=== PATIENT | female | born 1995 | race Caucasian/White ===

== ENCOUNTER 2022-06-26 08:51 | Outpatient (CLI) | payer OTHER, SELFPAY ==
[2022-06-26 12:54] LABS: Cholesterol* 169 mg/dL (90-199); Glucose* 81 mg/dL (60-115); HDL Cholesterol* 71 mg/dL (>=50); LDL Cholesterol Calculated 87 mg/dL (<100); Triglycerides* 55 mg/dL (40-149)
== END 2022-06-26 08:52 | disposition home or self-care (01) ==
PROVIDERS: Visit Provider Physician Assistant
DX: Z01.419 Encounter for gynecological examination (general) (routine) without abnormal findings (principal); Z13.6 Encounter for screening for cardiovascular disorders; Z13.1 Encounter for screening for diabetes mellitus
CPT/HCPCS: 80061; 82947

== ENCOUNTER 2022-06-30 06:58 | Outpatient (CLI) | payer OTHER, SELFPAY ==
--- NOTE | 2022-06-30 07:15 | CRLHL7_ITS ---
For Patients: As a result of the Century Cures Act, medical imaging exams and procedure reports are released immediately into your electronic medical record. You may view this report before your referring provider. If you have questions, please contact your health care provider. CLINICAL HISTORY: Pelvic pressure TECHNIQUE: 2D flood scale and color Doppler images were acquired of the pelvis using a transvaginal approach. FINDINGS: On transvaginal imaging, the myometrium has a normal uniform echotexture. The endometrial lining appears normal and measures 9 mm in thickness. The left ovary measures 3.1 x 1.8 x 3.2 cm in size and the right ovary measures 3.0 x 1.4 x 1.8 cm. The ovaries demonstrate normal arterial and venous blood flow on color Doppler analysis. There are no suspicious fluid collections within the cul-de-sac. IMPRESSION: No abnormalities of the uterus or ovaries identified. Dictated by Chip Hawkins MD @ 06/30/2022 9:17:16 AM (Electronically Signed)
== END 2022-06-30 06:59 | disposition home or self-care (01) ==
PROVIDERS: Visit Provider Physician Assistant
DX: R10.2 Pelvic and perineal pain (principal)
CPT/HCPCS: 76830

== ENCOUNTER 2022-12-05 14:55 | Outpatient (CLI) | payer OTHER, SELFPAY | END 2022-12-05 14:56 | disposition home or self-care (01) | PROVIDERS: Visit Provider Registered Nurse | DX: Z34.91 Encounter for supervision of normal pregnancy, unspecified, first trimester (principal); Z3A.08 8 weeks gestation of pregnancy | CPT/HCPCS: 76817; 82565; 82570; 84156; 84450; 84460; 84520; 86592; 86703; 86762; 86787; 86803; 86850; 86900; 86901; 87086; 87340; 87491; 87591 ==

== ENCOUNTER 2023-02-18 08:34 | Outpatient (CLI) | payer OTHER, SELFPAY ==
--- NOTE | 2023-02-18 08:45 | CRLHL7_ITS ---
For Patients: As a result of the Century Cures Act, medical imaging exams and procedure reports are released immediately into your electronic medical record. You may view this report before your referring provider. If you have questions, please contact your health care provider. INDICATION: Evaluate anatomy. COMPARISON: 12/05/2022 TECHNIQUE: Real time flood scale imaging of the fetus was performed as well as color Doppler analysis of the umbilical vessels. FINDINGS: Sonographic imaging demonstrates a single living intrauterine gestation. Fetus demonstrates a regular cardiac rate of 123 beats per minute. Fetus has a variable position. The placenta lies posteriorly without evidence of placenta previa. The edge of the placenta is located 3.2 cm from the internal cervical os. Amniotic fluid volume appears normal. Single deepest vertical pocket: 4.8 cm. The cervix is closed and measures 4.4 cm in length. The composite ultrasound gestational age is calculated at 19 weeks 2 days with an estimated sonographic due date of 07/13/2023. The estimated weight is 284 grams which lies at the 18th %. The following biometric measurements were obtained: Biparietal diameter: 4.3 cm/19 weeks 0 days 18th% Head circumference: 16.1 cm/18 weeks 6 days 8th% Abdominal circumference: 14.3 cm/19 weeks 5 days 38th% Femur length: 2.9 cm/19 weeks 0 days 15th% The HC/AC ratio measures: 1.13 range (1.09-1.26) On anatomic survey, there is a normal appearance of the cerebral ventricles, cavum septi pellucidi, cisterna magna and cerebellum. The nose, lips, and facial profile appear normal. The cervical, thoracic and lumbar spine are well visualized and appear normal. There is a normal four-chamber heart view and the left and right ventricular outflow tracts appear normal. The diaphragm and stomach appear normal. The kidneys and bladder also appear normal. There is a normal three-vessel cord and cord insertion site. The four extremities appear normal. IMPRESSION: Normal OB ultrasound exam with concordance of clinical and sonographic dating. No intrinsic abnormalities noted on anatomic survey. Dictated by Chip Hawkins MD @ 02/18/2023 11:03:50 AM (Electronically Signed)
== END 2023-02-18 08:35 | disposition home or self-care (01) ==
LOC: US 08:34
PROVIDERS: Visit Provider Physician Assistant
DX: Z34.82 Encounter for supervision of other normal pregnancy, second trimester (principal); Z3A.19 19 weeks gestation of pregnancy
CPT/HCPCS: 76805

== ENCOUNTER 2023-04-17 14:16 | Outpatient (CLI) | payer OTHER, SELFPAY | END 2023-04-17 14:17 | disposition home or self-care (01) | LOC: NFLDREF 04-20 09:34 | PROVIDERS: Visit Provider Obstetrics & Gynecology | DX: Z34.93 Encounter for supervision of normal pregnancy, unspecified, third trimester (principal); Z3A.28 28 weeks gestation of pregnancy | CPT/HCPCS: 86592 ==

== ENCOUNTER 2023-04-22 07:49 | Outpatient (CLI) | payer OTHER, SELFPAY | END 2023-04-22 07:50 | disposition home or self-care (01) | LOC: NFLDREF 04-23 06:04 | PROVIDERS: Visit Provider Obstetrics & Gynecology | DX: Z34.80 Encounter for supervision of other normal pregnancy, unspecified trimester (principal) | CPT/HCPCS: 82951; 82952 ==

== ENCOUNTER 2023-05-27 09:31 | Outpatient (CLI) | payer OTHER, SELFPAY | END 2023-05-27 09:32 | disposition home or self-care (01) | PROVIDERS: Visit Provider Obstetrics & Gynecology | DX: O21.9 Vomiting of pregnancy, unspecified (principal); Z3A.33 33 weeks gestation of pregnancy | CPT/HCPCS: 80053 ==

== ENCOUNTER 2023-06-12 09:56 | Outpatient (CLI) | payer OTHER, SELFPAY ==
[2023-06-13 12:42] LABS: Strep B DNA Probe Negative (Negative); Strep B Susceptibility Needed? No
== END 2023-06-12 09:57 | disposition home or self-care (01) ==
LOC: NFLDREF 09:57
PROVIDERS: Visit Provider Obstetrics & Gynecology
DX: Z34.83 Encounter for supervision of other normal pregnancy, third trimester (principal); Z3A.36 36 weeks gestation of pregnancy
CPT/HCPCS: 87081; 87653

== ENCOUNTER 2023-06-26 17:00 | Inpatient (IN) | payer OTHER, SELFPAY ==
[2023-06-26] VITALS (18 sets, daily range): BP systolic 106–137; BP diastolic 59–84; PULSE 80–99; RESP 16–18; TEMP 36.4–37.1; O2SAT 97–100; BMI 35.5
--- NOTE | 2023-06-26 16:33 | P.OBLDTN_ITS ---
OB - Triage/Final Diagnosis Visit Information Narrative: Monique is a 27yo year old 2 para 1 at 38w1d gestation by LMP, who presents for rule out labor. course is complicated by prior delivery, umbilical cord cyst noted on early US (not redemonstrated on anatomy US) and elevated BMI. Patient was seen for routine OB visit this afternoon, where she noted regular contractions about every 10-15 minutes. Cervical exam was performed and noted to be 2/50/-2. She subsequently returned home, where she notes her contractions have become increasingly regular and painful. At present they are occurring [] minutes apart, rated as [] had a 10 in severity. Denies vaginal bleeding, leaking of fluids. Endorses active movement. She is otherwise feeling well and in her normal state of health. Monique is planning repeat delivery. Complete history and physical was documented by myself on 06/19/23. Physical exam: General: No acute distress Psych: Alert and oriented x3, full affect Heart: Regular rate and rhythm, no murmur rub or gallop Lungs: Clear to auscultation bilaterally Abdomen: Gravid. Otherwise soft and nontender. heart rate: Reactive NST. Baseline of 140 beats per minute, moderate variability, accelerations present, decelerations absent. [place]: [] Cervix: [] Presentation: Cephalic by cervical exam
--- OUTSIDE RECORDS SUMMARY | 2023-06-26 16:42 | XMS_ITS | Clinical Summary ---
Author Name Unknown Organization [facility] Address [address] [place] [address] Care Team Providers Care Dog Handler Name Role Phone Ellen Fung PA-C Primary Care Provider + Allergies Active Allergy Reactions Criticality Noted Date Comments Azithromycin Other (See Comments) 08/27/2015 has prolonged QT, try to avoid this medication Medications Medication Sig Dispensed Refills Start Date End Date Status magnesium oxide (MAG-OX) 400 (241.3 MG) MG tabletIndications:Epis odic tension-type headache, not intractable Take 1 tablet (400 mg) by mouth daily 60 tablet 11 05/25/2017 Active melatonin 3 MG tablet Take 3 mg by mouth Takes couple times per week 0 05/14/2010 Active Active Problems Problem Noted Date Diagnosed Date Low ferritin 05/25/2017 Surveillance of previously prescribed contracept grey pill 10/23/2016 Menstrual headache Immunizations Name Administration Dates Next Due DTAP (<7y) 10/04/1998 DTP-Hib 01/01/1995, 4,02/18/1994,1993 Flu, Unspecified 05/15/2015 HEPA 07/28/2011,01/08/2011 HEPATITIS A (PEDS 12M-18Y) 07/28/2011,01/08/2011 HIB (PRP-T) 01/01/1995, 4,02/18/1994,1993 HPV 08/03/2009,03/30/2009,01/23/2009 HPV Quadrivalent 08/03/2009,03/30/2009, 9 HepB 10/09/1994,01/01/1994,1993 Hepatitis B, Peds 10/09/1994,01/01/1994,11/22/18 94 Historical DTP/aP 10/04/1998, 5,04/09/1994,1993,1993 Influenza Vaccine >6 months,quad, PF 05/25/2017 MMR 01/29/2006,01/01/1995 Meningococcal ACWY (Menactra??) 01/23/2009 Meningococcal ACWY (Menveo??) 08/27/2015 Poliovirus, inactivated (IPV) 05/11/2013 ,10/04/1998,04/09/1994,1993,1993 TDAP Vaccine (Adacel) 10/25/2015,01/29/2006 Typhoid IM 05/11/2013 Varicella 01/10/1997 Family History Medical History Relation Comments Lung Cancer Paternal Grandmother 2nd hand sm tito Relation Status Comments Father Alive Maternal Grandfather Alive Maternal Grandmother Alive Mother Alive Paternal Grandfather Alive Paternal Grandmother Sister Alive Social History Tobacco Use Types Packs/Day Years Used Date Smoking Tobacco: Never Smokeless Tobacco: Never Alcohol Use Standard Drinks/Week Comments Yes 0 (1 standard drink = 0.6 oz pur e alcohol) 0-1 drinks per month PHQ-2 Answer Date Recorded PHQ-2 Score 0 06/23/2018 Adolescent Education Answer Date Record ed Getting School Help Needed Not on file 03/06 Sex and Gender Information Value Date Recorded Sex Assigned at Not on file Gender Identity Not on file Sexual Orientation Not on file Last Filed Vital Signs Vital Sign Reading Time Taken Comments Blood Pressure 128/68 05/24/2018 4:31 PM REFRACTORY FURNACE DESIGNER Pulse 96 05/24/2018 4:31 PM REFRACTORY FURNACE DESIGNER Temperature 37 ??C (98.6 ??F) 05/24/2018 4:31 PM REFRACTORY FURNACE DESIGNER Respiratory Rate - - Oxygen Saturation 97% 05/24/2018 4:31 PM REFRACTORY FURNACE DESIGNER Inhaled Oxygen Concentration - - Weight 82.1 kg (181 lb) 05/24/2018 4:31 PM REFRACTORY FURNACE DESIGNER Height 167.6 cm (5' 6) 05/24/2018 4:31 PM REFRACTORY FURNACE DESIGNER Body Mass Index 29.21 05/24/2018 4:31 PM REFRACTORY FURNACE DESIGNER Plan of Treatment Health Maintenance Due Date Last Done Comments ADVANCE CARE PLANNING 1993 ANNUAL REVIEW OF HM ORDERS 1993 COVID-19 Vaccine (#1) 04/09/1994 HIV SCREENING 2008 HEPATITIS C SCREENING 10/09/2011 YEARLY PREVENTIVE VISIT 10/23/2017 10/23/2016 PAP 10/30/2018 10/31/2015, 09/14/2015 PHQ-2 (once per calendar year) 2022 10/23/2016 INFLUENZA VACCINE (#1) 2023 05/25/2017, 2014 DTAP/TDAP/TD IMMUNIZATION (8 - Td or Tdap) 10/24/2025 10/25/2015, 01/29/2006, 10/04/1998, Additional history exists HEPATITIS B IMMUNIZATION Completed 995, 10/09/1994, 01/01/1994, Additional history exists HPV IMMUNIZATION Completed 08/03/2009, , 03/30/2009, Additional history exists IPV IMMUNIZATION Completed 05/11/2013, , 04/09/1994, Additional history exists MENINGITIS IMMUNIZATION Aged Out 08/27/2015, 01/23 No longer eligible based on patient's age to complete this topic Pneumococcal Vaccine: Pediatrics (0 to 5 Years) and At-Risk Patients (6 to 64 Years) Aged Out No longer eligible based on patient's age to complete this topic RSV MONOCLONAL ANTIBODY Aged Out No l onger eligible based on patient's age to complete this topic Care Teams Dog Handler Relationship Specialty Start Date End Date Ellen Fung PA-C [address] [place] [id number] PCP - General Physician Soda Tester 05/25/17
--- OUTSIDE RECORDS SUMMARY | 2023-06-26 16:42 | XMS_ITS | Referral Summary ---
Author Name Unknown Organization [facility] Address [address] [place] [address] Care Team Providers Care Hog Cutter Name Role Phone Ellen Fung PA-C Primary [...] (Adacel) 10/25/2015,01/29/2006 Typhoid IM 05/11/2013 Varicella 01/10/1997 Social History Tobacco Use Types Packs/Day Years [...] Comments Blood Pressure 128/68 05/24/2018 4:31 PM WATCH CASE POLISHER Pulse 96 05/24/2018 4:31 PM WATCH CASE POLISHER Temperature 37 ??C (98.6 ??F) 05/24/2018 4:31 PM WATCH CASE POLISHER Respiratory Rate - - Oxygen Saturation 97% 05/24/2018 4:31 PM WATCH CASE POLISHER Inhaled Oxygen Concentration - - Weight 82.1 kg (181 lb) 05/24/2018 4:31 PM WATCH CASE POLISHER Height 167.6 cm (5' 6) 05/24/2018 4:31 PM WATCH CASE POLISHER Body Mass Index 29.21 05/24/2018 4:31 PM WATCH CASE POLISHER Plan of Treatment Not on file Care Teams Hog Cutter Relationship Specialty Start Date End Date Ellen Fung PA-C [address] [place] [id number] PCP - General Physician Cleaner And Dyer 05/25/17
--- OUTSIDE RECORDS SUMMARY | 2023-06-26 16:42 | XMS_ITS | Encounter Summary ---
Author Name Unknown Organization [facility] Address [address] [place] [id number] Care Team Providers Care Credentialer Name Role Phone Clinic - [facility] Primary Care Provider Ellen Fung PA-C Primary Care Provider + Ellen Fung PA-C Unavailable Zulay Meade PA-C Unavailable [phone] Zulay Meade PA-C Unavailable [phone] Ellen Fung PA-C Unavailable Zulay Meade PA-C Unavailable [phone] Reason for Visit * Reason Onset Date Comments Refill Request 01/16/2017 drospirenone-eth inyl estradiol (OCELLA) 3-0.03 MG per tablet Encounter Details Date Type Department Care Team (Late st Contact Info) Description 01/16/[address] [facility] [address] [place] [address] [phone] Ellen Fung PA-C [address] [place] [address] [phone] Refill Request (drospirenone-ethinyl estra... Social History Tobacco Use Types Packs/Day Years Used Date Smoking Tobacco: Never Alcohol Use Standard Drinks/Week Comments Yes 0 (1 standard drink = 0.6 oz pur e alcohol) very seldom, 1 monthly? Sex and Gender Information Value Date Recorded Sex Assigned at Not on file Gender Identity Not on file Sexual Orientation Not on file documented as of this encounter Miscellaneous Notes * Telephone Encounter - Taisha Polk RN - 01/19/2017 4:04 PM CDT Pt should have refills left. Steph Polk RN * Telephone Encounter - Alina Fernandes - 01/16/2017 10:48 AM CDT drospirenone-ethinyl estradiol (OCELLA) 3-0.03 MG per tablet This refill has been requested too soon. Please decline and close. * Telephone Encounter - Taisha Polk RN - 01/16/2017 7:36 AM CDTMessage [facility] Original authorizing provider: Ellen Fung PA-C Monique Jeffries would like a refill of the following medications: drospirenone-ethinyl estradiol (OCELLA) 3-0.03 MG per tablet [Ellen Fung PA-C] Preferred pharmacy: [facility] [address] Comment: documented in this encounter Plan of Treatment Not on file documented as of this encounter Visit Diagnoses Diagnosis Surveillance of previously prescribed contraceptive pill documented in this encounter Care Teams Credentialer Relationship Specialty Start Date End Date Clinic - [address] [address] PCP - General 10/23/16 05/24/17 Ellen Fung PA-C [address] [place] [id number] PCP - General Physician Coal Sample Tester 05/25/17 Ellen Fung PA-C [address] [place] [id number] PCP - Assigned PCP 09/26/16 05/29/18 Zulay Meade PA-C [address] [place] [address] [place] [address] PCP - Assigned PCP 05/30/18 08/17/18 Zulay Meade PA-C [address] [place] [address] [place] [address] Assigned PCP 05/30/18 05/28/19 Ellen Fung PA-C [address] [place] [address] Assigned PCP 05/29/19 05/26/20 Zulay Meade PA-C [address] [place] [address] Assigned PCP 05/27/20 05/25/21 documented as of this encounter
--- OUTSIDE RECORDS SUMMARY | 2023-06-26 16:42 | XMS_ITS | Clinical Summary ---
Author Name Unknown Organization [facility] Address [place], [place] [address] Care Team Providers Care Lay Out Inspector Name Role Phone Shannan Crabtree NP Primary Care Provider [phone] Allergies Active Allergy Reactions Criticality Noted Date Comments Azithromycin Other - Describe In Comment Field 08/27/2015 has prolonged QT, try to avoid this medication Medications Medication Sig Dispensed Refills Start Date End Date Status melatonin 3 mg Take 1 tablet by mouth at bedtime. 0 05/14/2010 Active OCELLA 3-0.03 mg tabletIndications:Encou nter for initial prescription of contraceptive pills TAKE 1 TABLET BY MOUTH ONCE DAILY 84 tablet 0 11/04/2016 Active Active Problems Problem Noted Date Diagnosed Date Prolonged Q-T interval on ECG 10/25/2015 Overview: history of when on Nortriptyline Sleep difficulties 10/06/2014 Irregular menses 07/04/2013 Resolved Problems Problem Noted Date Diagnosed Date Resolved Date Generalized headaches 01/23/20092014 Varicella 10/06/2014 Immunizations Name Administration Dates Next Due DTP-HIB 01/01/1995,04/09/1994,02/18/1994 ,1993 DTaP 10/04/1998 Hepatitis A (Peds) 07/28/2011,01/08/2011 Hepatitis B (Peds) 10/09/1994,01/01/1994, 994 Human Papilloma Virus Vaccine 08/03/2009, 009,01/23/2009 Inactivated Polio Vaccine 05/11/2013,,04/09/1994,02/18/1994 ,1993 Influenza Virus, Unspecified 05/15/2015 MMR 01/29/2006,01/01/1995 Meningococcal Vaccine (Menactra) 01/23/2009 Meningococcal Vaccine (Menveo) 08/27/2015 Tdap 10/25/2015,01/29/2006 Typhoid (injectable) 05/11/2013 Varicella Vaccine 01/10/1997 Family History Medical History Relation Name Comments Cancer Paternal Grandfather kidney Cancer Paternal Grandmother lung Diabetes Paternal Grandmother Relation Name Status Comments Father Alive Mother Alive Paternal Grandfather Paternal Grandmother Sister Alive Social History Tobacco Use Types Packs/Day Years Used Date Smoking Tobacco: Never Smokeless Tobacco: Never Alcohol Use Standard Drinks/Week Comments Yes 0 (1 standard drink = 0.6 oz pur e alcohol) once in a while Sex and Gender Information Value Date Recorded Sex Assigned at Not on file Gender Identity Not on file Sexual Orientation Not on file Obstetrics History Last Filed Vital Signs Vital Sign Reading Time Taken Comments Blood Pressure 116/62 10/25/2015 8:02 AM CDT Pulse 90 10/25/2015 8:02 AM CDT Temperature 36.4 ??C (97.5 ??F) 06/12/2012 9:12 AM CS T Respiratory Rate 12 10/06/2014 3:04 PM CDT Oxygen Saturation - - Inhaled Oxygen Concentration - - Weight 86.6 kg (191 lb) 10/25/2015 8:02 AM CDT Height 166.4 cm (5' 5.5) 08/27/2015 8:58 AM CDT Body Mass Index 31.3 08/27/2015 8:58 AM CDT Plan of Treatment Health Maintenance Due Date Last Done Comments COVID-19 vaccine series (#1) 04/09/1994 HIV for age 15-65 2008 Hepatitis C screening for age 18-79 10/09/2011 BMI (ht and wt on same day) for age 18+ 08/26/2016 08/27/2015 Depression screening for age 12+ 10/24/2016 10/25/2015 Influenza for age 9-49 02/13/2023 05/15/2015 Pap test for age 21-65 06/26/2025 3, 06/26/2022, 03/13/2020, Additional history exists Tetanus booster 10/24/2025 10/25/2015, 01/29/2006 Tdap Completed 10/25/2015, 01/29/2006 Pneumococcal series for age 6-64 Aged Out No longer eligible based on patient's age to complete this topic Care Teams Lay Out Inspector Relationship Specialty Start Date End Date Shannan Crabtree NP [address] [place] [address] [place] [address] PCP - General 01/15/06
--- NOTE | 2023-06-26 17:03 | P.OBHP_ITS ---
OB - H&P: HPI History of Present Illness Chief complaint: OB : 2 Para: 1 Narrative: Monique is a 27yo year old 2 para 1 at 38w1d gestation by LMP, who presents for rule out labor. course is complicated by prior delivery, umbilical cord cyst noted on early US (not redemonstrated on anatomy US), elevated BMI and history of preeclampsia. Patient was seen for routine OB visit this afternoon, where she noted regular contractions about every 10 minutes. Cervical exam was performed and noted to be 2/50/-2. She subsequently returned home, where she notes her contractions have become increasingly regular and painful. At present they are occurring 3-5 minutes apart, rated as 3 had a 10 in severity. Denies vaginal bleeding, leaking of fluids. Endorses active movement. She is otherwise feeling well and in her normal state of health. Monique is planning repeat delivery. Complete history and physical was documented by myself on 06/19/23. Specific Issues/Plans G 2 P 1001 : Rashad 1. History of preeclampsia with first . * Baseline pre E labs: BUN, creatinine, AST, ALT, and PC ratio all normal. * Recommend daily baby aspirin starting at 12 weeks to reduce risk of pre E. 2. H/o d/t not progressing in second stage of labor. * Planning repeat 3. Umbilical cord cyst on first ultrasound. * MaterniT 21:normal, XX * Umbilical cord cyst resolved at time of anatomy scan 02/18/2023. Covid: Not vaccinated. Recommended. Reviewed risks of covid infection in . Flu: 03/20/23 RSV: 06/03 [facility] Medical History (Updated 06/26/23 @ 17:10 by Sadie Mariano MD) Strep throat ?J02.0 - Streptococcal pharyngitis (ICD-10) Preeclampsia ?O14.90 - Unspecified pre-eclampsia, unspecified trimester (ICD-10) Anemia ?D64.9 - Anemia, unspecified (ICD-10) Surgical History (Updated 06/26/22 @ 14:08 by Marilu Christensen PA-C) History of ?Z98.891 - History of uterine scar from previous surgery (ICD-10) Family History (Updated 06/26/22 @ 14:10 by Marilu Christensen PA-C) Mother Breast cancer Paternal Grandmother Lung cancer Depression Paternal Grandfather Cancer of kidney Sister Celiac disease Social History (Updated 06/26/22 @ 14:11 by Marilu Christensen PA-C) Narrative: Controller, . Nonsmoker. Alcohol use: 1-2 drinks per week. No recreational drug use. No concerns with safety or abuse. Smoking Status: Never smoker Little interest or pleasure in doing things: not at all Feeling down, depressed, or hopeless: not at all Meds Home Medications and Allergies Home Medications Medication Instructions Recorded Confirmed Type prenat.vits,davida,dhe-[id number] 1 tab PO QDAY 06/26/22 06/19/23 History aspirin 81 mg tablet,delayed 81 mg PO QDAY 01/22/23 06/19/23 History release (Adult Aspirin Regimen) ferrous sulfate 325 mg (65 mg 325 mg PO Q OTHER DAY 04/29/23 06/19/23 History iron) tablet,delayed release Allergies Allergy/AdvReac Type Severity Reaction Status Date / Time No Known Drug Allergies Allergy Verified 06/26/23 12:55 OB - H&P: Exam Physical Exam: Vital signs: Pulse BP 93 128/78 06/26/23 16:50 06/26/23 16:50 Narrative: Physical exam: General: No acute distress Psych: Alert and oriented x3, full affect Heart: Regular rate and rhythm, no murmur rub or gallop Lungs: Clear to auscultation bilaterally Abdomen: Gravid. Otherwise soft and nontender. EFW by Dieudonne's 3400g. heart rate: Reactive NST. Baseline of 140 beats per minute, moderate variability, accelerations present, decelerations absent. [place]: Contractions q1-4m Cervix: 3.5cm/70%/-1 Presentation: Cephalic by cervical exam Assessment and Plan Assessment and plan (1) Spontaneous onset of labor: Status: Acute (2) with history of section, antepartum: Status: Acute (3) Umbilical cord cyst during , antepartum: Status: Resolved Plan Monique is a 27yo year old 2 para 1 at 38w1d gestation by LMP, who presents for rule out labor. course is complicated by prior delivery, umbilical cord cyst noted on early US (not redemonstrated on anatomy US), elevated BMI and history of preeclampsia. She presents to triage for spontaneous onset of labor at term. She has demonstrated cervical change from 2/50/-2 to 3.5/70/-1 with regular contractions q1-4m on toco. She desires repeat delivery, not interested in surgical sterilization or IUD placement. - Plan to proceed with repeat delivery. OR team notified to present for delivery. - Plan perioperative Ancef and azithromycin - Significant lower extremity edema noted, plan to obtain baseline preeclampsia labs and type/screen - Blood type A positive, GBS negative
[2023-06-26] MEDS: LACTATED RINGERS 1000 ML 1,000 ML IV (17:15)
[2023-06-26 17:31] LABS: Basophils Percent Auto 0.1 % (0.0-3.0); Hematocrit 36.2 % (33.0-51.0); Hemoglobin* 12.1 gm/dL (12.0-16.0); Immature Granulocytes Pct Auto 0.5 %; Lymphocytes Percent Auto 13.9 % (20-44); Mean Corpuscular HGB Conc 33 gm/dL (32-36); Mean Corpuscular Hemoglobin 31 pg (26-34); Mean Corpuscular Volume 93 fL (80-100); Monocytes Percent Auto 4.9 % (0.0-11.0); Neutrophils Percent Auto 79.6 % (42.0-72.0); Platelet Count* 203 K/uL (140-440); RDW Coefficient of Variation % 12.8 % (11.5-15.5); Red Blood Count 3.89 m/uL (4.00-5.20); White Blood Count* 12.41 K/uL (4.50-11.00)
[2023-06-26 17:32] LABS: Alanine Aminotransferase* 18 U/L (4-35); Aspartate Amino Transferase* 24 U/L (12-35); Blood Urea Nitrogen* 4 mg/dL (5-24); Creatinine* 0.4 mg/dL (0.5-1.5); Est. Creatinine Clearance* 194.27; Estimated Glomerular Filt Rate 137 ml/min
[2023-06-26 17:39] LABS: Slide Review Reflex No
[2023-06-26] MEDS: AZITHROMYCIN 500 MG in 0.9 % SODIUM CHLORIDE 250 ml 250 ML 255 MG IVPB (18:15)
[2023-06-26] MEDS: CEFAZOLIN 2 GM INJ IVP (18:15)
--- NOTE | 2023-06-26 19:23 | P.OBPRC_ITS ---
Procedure Time Seen by Provider: 19:25 Date of procedure: 06/26/23 Pre-op diagnosis: Spontaneous onset of labor Prior Post-op diagnosis: same Procedure Done: Global Will [facility] bill your pro fee for this procedure?: Yes Blood Loss Measurement Type: QBL (8953) Bakri Used: No IV fluids (mL): 2,500 Urine Output (mL): 1,000 Surgeon: Asha Mariano MD Anesthesia Type: Spinal Findings: Moderate adhesions of the subcutaneous tissues, rectus fascia and muscle Normal uterus, bilateral fallopian tubes and ovaries Procedure Name: Repeat Delivery Procedure Description: Patient was taken to the operating room with IV running. She received cefazolin and azithromycin in preoperative prophylaxis. Spinal anesthesia was administered. Borden catheter was inserted. She was prepped and draped in the usual sterile fashion. Anesthesia was tested and found to be adequate. A low-transverse skin incision was made with a scalpel overlying prior incision and carried through to the underlying layer of fascia with the scalpel. The subcutaneous fat was dissected off the underlying fascia with Bovie. The fascia was nicked in the midline with a scalpel, and this incision was extended laterally with scissors. Moderate adhesions between subcutaneous tissue, rectus fascia and muscles were noted. The rectus muscles were in the midline. Peritoneum was identified and entered bluntly. Gentle traction and bovie was used to widen this opening laterally. Vineet O retractor was inserted and tightened down, providing excellent visualization of the lower uterine segment. The bladder reflection was advanced along the lower uterine segment. A bladder flap was created with a combination of sharp and blunt dissection. Low-transverse uterine incision was made with a scalpel. Incision was widened bluntly. The 's head was grasped through the hysterotomy and delivered with the help of fundal pressure. The remainder of the body delivered without incident. Cord was clamped and cut after 30 seconds. was handed off to attending nurses. The placenta was delivered with gentle traction on the cord. The uterus was cleaned of all clots and debris with the dry lap pad. The hysterotomy was inspected, no extensions noted. Hysterotomy incision was reapproximated with 0 Vicryl in a running, locked fashion. Second layer of the same suture was used in imbricating fashion to obtain hemostasis. A single [id number] was applied at the mid-right hysterotomy for additional hemostasis. The adnexa were examined and noted to be normal in appearance. The cul-de-sac and gutters were cleansed with dampened laparotomy sponge, removing any further clots and debris. The Vineet O retractor was removed. The hysterotomy was reexamined and found to be hemostatic. The rectus muscles were examined and hemostasis was achieved with additional electrocautery. Due to prior adhesive disease, there were areas of disruption of the muscle with small oozing noted, where Jas was applied atop the rectus abdominis muscles. The fascia was reapproximated with 0 Vicryl in a running fashion. Subcutaneous fat was irrigated and Bovie used on oozing vessels. The subcutaneous fat was noted to be less than 2cm, closer was not required. The skin was closed with a subcuticular stitch of 3-0 Vicryl. Surgical glue was applied above this. Surgical dressing was applied. Patient tolerated procedure well was taken to recovery area in stable condition. sex: Female Weight: 1357g APGARs: 8 and 8 at 1 and 5 minutes respectively Complications: hemorrhage by QBL of 1,357mL. Question of concurrent amniotic fluid that may have falsely elevated her QBL. Clinically, her bleeding was slightly above average - mostly secondary to oozing from site of adhesion take down. No uterine atony noted. Pathology: specimen obtained, sent to pathology Surgery Debrief Performed: Yes Condition: stable Disposition: floor
--- NOTE | 2023-06-26 20:10 | P.NB_ITS ---
Nerve Block Nerve Block Time Seen by Provider: 19:25 Date Seen: 06/26/23 Type of block requested by surgeon for post-operative analgesia: TAP Side: bilateral Time out performed: Yes Verification of patient name: Yes Verification of date of : Yes Site marking: site marked Name of person performing procedure: Kirill Camryn Continuous monitoring Was continuous monitoring of O2 sat, B/P, monitoring coordinator, recorded every 15 minutes?: Yes Procedure Checklist: sterile prep, needles and gloves Ultrasound guided. Images saved: Yes Medications given in 5ml increments after negative aspiration: Marcaine %: 0.25 mL: 30 Needle gauge: 21 and Exparel mL: 10 Needle gauge: 21 Patient tolerated procedure well: Yes Additional comments: Injected in 5mL increments after negative aspiration Block Charges Block Charge (with Pro Fee): TAP Bilateral Use of Ultrasound Machine for Block: Yes- US Guidance/pain block
--- NOTE | 2023-06-26 20:12 | W.ANESCHARGE ---
Anesthesia Charges Start Date/Time Anesthesia Start Date: 06/26/23 Anesthesia Start Time: 18:04 Stop Date/Time Anesthesia Stop Date: 06/26/23 Anesthesia Stop Time: 19:41 Summary Emergency: [employer]GER
[2023-06-27] VITALS (24 sets, daily range): BP systolic 106–118; BP diastolic 72–78; PULSE 86–97; RESP 14–18; TEMP 36.8–37.1; O2SAT 97–100
[2023-06-27] MEDS: KETOROLAC 30 MG/ML inj IVP ×4 (01:09→19:20)
[2023-06-27] MEDS: SODIUM CHLORIDE 0.9 % (FLUSH) 10 ML SYRINGE IVF ×4 (01:09→19:20)
[2023-06-27] MEDS: ONDANSETRON 2 MG/ML inj 4 MG IV (01:27)
[2023-06-27] MEDS: ACETAMINOPHEN 500 MG TABLET 1000 MG PO (04:30)
[2023-06-27 06:56] LABS: Hemoglobin* 10.5 gm/dL (12.0-16.0)
--- NOTE | 2023-06-27 11:18 | PM.ANPOST ---
Post Anesthesia Note Post Anesthesia Note Patient seen: Inpatient Respiratory Status: adequate Cardiovascular Status: adequate Mental Status: baseline Pain: adequate Temp: baseline Anesthetic awareness: N/A Complications: none Follow care: none
--- NOTE | 2023-06-27 12:04 | P.OBPN_ITS ---
OB - PN:Subj Subjective Time Seen by Provider: 12:04 Date Seen: 06/27/23 Interval history: Monique is a 27 y.o. who was admitted to L & D for labor, desired a repeat c- section.? She had an uncomplicated repeat .? ? ? Narrative: The patient feels well.? The pain is well controlled with current medications.? She has no new complaints.? She is breast feeding and reports things are going well.? the patient has done well.? Vitals have been stable.? She has remained afebrile.? Has a good appetite, is tolerating a general diet.? She has not been able to void since her whelan was removed. She was straight cathed by the RN. Will continue to monitor.? She is passing gas and has not had a bowel movement.? She is ambulating and denies any dizziness.? Has Small amount of rubra lochia.? OB - PN: Obj Exam Physical Exam: Vital signs: Temp Pulse Resp BP Pulse Ox O2 Del Method 98.4 F 86 16 106/72 97 Room Air 06/27/23 08:01 06/27/23 08:01 06/27/23 09:20 06/27/23 08:01 06/27/23 08:01 06/27/23 08:01 Narrative: VSS.? Afebrile? GENERAL APPEARANCE:? normal affect, alert, no distress? MOOD:? appropriate? HEENT: normocephalic, neck supple, full ROM? CHEST:? Symmetrical chest wall movement.? Normal respiratory effort.? Clear to auscultation? HEART:? regular rate and rhythm? ABDOMEN:? soft, non-tender. Uterine fundus is firm, 1 below Umbilicus, Midline and is appropriate for the stage of recovery.? Bowel sounds present.? EXTREMITIES:? normal and trace edema? SKIN: warm, dry.? Dressing on, clean/dry/intact.? No signs of infection noted.? Urinary Catheter Management: whelan: Cath placed during this visit: yes, but has since been removed by the nurse Reason for continuing: decision to DC catheter Insertion date: 06/26/23 Insertion time: 18:10 Removal date: 06/27/23 Removal time: 01:25 OB - PN: Obj Data Labs Labs: Laboratory Results - last 24 hr 0106/26/23 06/27/23 17:09 17:09 06:33 WBC 12.41 H RBC 3.89 L Hgb Cancelled 12.1 10.5 L Hct 36.2 MCV 93 MCH 31 MCHC 33 RDW Coeff of Matias 12.8 Plt Count 203 Neut % (Auto) 79.6 H Lymph % (Auto) 13.9 L [place] % (Auto) 4.9 Eos % (Auto) 1.0 Baso % (Auto) 0.1 Neut # (Auto) 9.90 H Lymph # (Auto) 1.70 [place] # (Auto) 0.60 Eos # (Auto) 0.10 Baso # (Auto) 0.00 Abs Immat Gran (auto) 0.10 Imm/Tot Granulo (auto) 0.5 BUN 4 L Creatinine 0.4 L Estimated Creat Clear 194.27 Estimated GFR 137 AST 24 ALT 18 Blood Type A Positive Antibody Screen NEGATIVE OB - PN: A/P Delivery Assessment and Plan (1) Status post repeat low transverse section: Status: Acute (2) Lactating mother: Status: Acute (3) with history of section, antepartum: Status: Acute (4) exam: Status: Acute Plan day: 1 Plan: routine care Comments: Assessment/Plan? G 2 P 2 status post uncomplicated repeat .? ?? 1.? Continue route PP cares? 2.? .? May see if desired? 3.? Anticipate discharge home tomorrow or the following day per pt preference? 4. Unable to void. Straight cathed by RN. Will continue to monitor. ?
[2023-06-27] MEDS: DOCUSATE SODIUM 100 MG CAPSULE PO (20:02)
[2023-06-28 00:58] VITALS: BP 125/85; PULSE 92; RESP 18; TEMP 36.8; O2SAT 98
[2023-06-28] MEDS: KETOROLAC 30 MG/ML inj IVP (01:00)
[2023-06-28] MEDS: ACETAMINOPHEN 500 MG TABLET 1000 MG PO ×2 (05:27→14:51)
--- NOTE | 2023-06-28 08:39 | PM.OBDSVD1 ---
DS: Providers Provider Time Seen by Provider: 08:39 Date Seen: 06/28/23 Date of admission: 06/26/23 17:00 Primary care physician: Not a Local Provider Admitting Clinician: Sadie Mariano MD Attending Physician on discharge: Sadie Mariano MD Date of Discharge: 06/28/23 DS: Diagnosis Discharge Diagnosis (1) Status post repeat low transverse section: Status: Acute (2) Lactating mother: Status: Acute (3) exam: Status: Acute Exam Narrative: Exam Narrative: VSS. ?Afebrile GENERAL APPEARANCE: ?normal affect, alert, no distress MOOD: ?appropriate HEENT: normocephalic, neck supple, full ROM CHEST: ?Symmetrical chest wall movement. ?Normal respiratory effort. ?Clear to auscultation HEART: ?regular rate and rhythm ABDOMEN: ?soft, non-tender. Uterine fundus is firm, 1 below Umbilicus, Midline and is appropriate for the stage of recovery. ?Bowel sounds present. EXTREMITIES: ?normal and trace edema SKIN: warm, dry. ? ?Incision clean/dry/well approximated. ?No signs of infection noted. Const: Vital Signs, click to edit/add: Vital Signs - 24 hr 06/27/23 09:20 06/27/23 10:09 06/27/23 11:09 Temperature Pulse Rate [Pulse Oximeter] Respiratory Rate 16 16 16 Blood Pressure [Le ft Arm] Pulse Oximetry Oxygen Delivery Or thod 06/27/23 12:09 06/27/23 13:09 06/27/23 13:17 Temperature 98.4 F Pulse Rate [Pulse Oximeter] 94 Respiratory Rate 16 16 16 Blood Pressure [Le ft Arm] 117/78 Pulse Oximetry 100 Oxygen Delivery Or thod Room Air 06/27/23 14:09 06/27/23 15:09 06/27/23 16:04 Temperature 98.3 F Pulse Rate [Pulse Oximeter] 97 Respiratory Rate 16 16 16 Blood Pressure [Le ft Arm] 115/74 Pulse Oximetry 99 Oxygen Delivery Or thod Room Air 06/27/23 16:09 06/27/23 17:09 06/27/23 18:09 Temperature Pulse Rate [Pulse Oximeter] Respiratory Rate 16 16 16 Blood Pressure [Le ft Arm] [facility]ulse [facility]ximetry [facility]23 19:19 06/28/23 00:58 Temperature 98.3 F Pulse Rate [Pulse Oximeter] 92 Respiratory Rate 18 18 Blood Pressure [Le ft Arm] 125/85 Pulse Oximetry 98 Oxygen Delivery Me thod Room Air OB - DS: Summary Hospital Course Hospital Course: Monique is a 27 y.o. G 2 P 2 who was admitted to L & D for chelsea labor, hx previous desiring repeat. ?She had an uncomplicated . ? The patient feels well. ?The pain is well controlled with current medications. ?She has no new complaints. ?She is breast feeding and reports things are going well.? the patient has done well.? Vitals have been stable.? She has remained afebrile.? Has a good appetite, is tolerating a general diet. ?She is voiding without difficulty.? She is passing gas and has not had a bowel movement.? She is ambulating and denies any dizziness.? Has Small amount of rubra lochia. She is planning condoms for prevention. Problems: none plan: Discharge home with baby. Follow up in 2 weeks and 6 weeks. , may follow up with if needed Previous hx of preeclampsia, is aware of signs when to call/be seen. No preeclampsia noted this at this time. Peripartum Data delivery method: Repeat Section Procedures: Procedures Operation Date: 06/26/23 17:45 <No data on this case meets the specified criteria> Operation Date: 06/26/23 18:15 Actual Procedure Side Surgeon p Section Sadie Mariano MD complications: none Gender: Female Infant Discharge Plan: Home Status at Discharge Functional status at discharge: independent ambulation Overall status at discharge: patient is progressing back to baseline Time Spent with Patient Time attestation: Total time spent providing and/or coordinating discharge services: Time spent: Less than 30 minutes Discharge Plan Discharge Disposition: Home, Self-Care Date of Admission: 06/26/23 17:00 Primary Care Provider: Provider,Not a Local Condition: Stable Anticipated Discharge Date/Time: 06/28/23 13:00 Discharge Medications: New docusate sodium 100 mg Capsule 100 mg PO BID PRNQty: 100 0RF Rx Instructions: Take 1 cap 1-2 times a day as needed for constipation ibuprofen 600 mg Tablet 600 mg PO Q6H PRN (Reason: Pain) Qty: 60 0RF oxycodone 5 mg Tablet 5 - 10 mg PO Q4H PRN (Reason: Pain) Qty: 20 0RF Continued prenat.vits,davida,ybc-[id number] Tablet 1 tab PO QDAY Discontinued aspirin [Adult Aspirin Regimen] 81 mg tablet,delayed release (DR/EC) 81 mg PO QDAY ferrous sulfate 325 mg (65 mg iron) tablet,delayed release (DR/EC) 325 mg PO Q OTHER DAY Discharge Orders: Discharge Order (Routine); Ordered 06/28/23 Ordered By: Kisha Zamora Patient Education: OB Over the Counter Medication Information, OB /Breast Feeding Additional Instructions: Follow up in 2 weeks and 6 weeks in the clinic. No driving while taking oxycodone. Must be able to comfortably slam on the breaks in an emergency and twist to see as needed. Activity Level: Activity as Tolerated Discharge Diet: Regular Follow Up Appointments: Provider,Not a Local [Primary Care Provider] - [facility]
[2023-06-28 08:49] VITALS: BP 114/76; PULSE 93; RESP 18; TEMP 36.7; O2SAT 93
[2023-06-28] MEDS: IBUPROFEN 600 MG TABLET PO (08:54)
[2023-06-28] MEDS: DOCUSATE SODIUM 100 MG CAPSULE PO (08:54)
== END 2023-06-28 16:14 | disposition home or self-care (01) | DRG 788 ==
LOC: OB OUT 17:02 → OB 17:02
PROVIDERS: Admitting Provider Obstetrics & Gynecology; Visit Provider Obstetrics & Gynecology
PROC: 10D00Z1 Extraction of Products of Conception, Low, Open Approach (ICD-10-PCS; CPT 59514; principal; 2023-06-26 18:00)
DX: O34.211 Maternal care for low transverse scar from previous cesarean delivery (principal); N85.8 Other specified noninflammatory disorders of uterus; Z3A.38 38 weeks gestation of pregnancy; Z37.0 Single live birth; G89.18 Other acute postprocedural pain; Z87.59 Personal history of other complications of pregnancy, childbirth and the puerperium
CPT/HCPCS: 01961; 36415; 51798; 64488; 76942; 82565; 84450; 84460; 84520; 85018; 85025; 86850; 86900; 86901; 88307; 99140; A9270; C9290; J0456; J0665; J0690; J1100; J1885; J2274; J2371; J2405; J2590; J7050; J7120

== ENCOUNTER 2023-09-04 09:23 | Outpatient (CLI) | payer OTHER, SELFPAY ==
--- NOTE | 2023-09-04 17:00 | P.LACCB_ITS ---
Consult Note - Mom Date of Visit Date of visit: 09/04/23 security and privacy consultant: Judith Verdin Visit Code: Visit Patient's Information Phone number: [phone] : 2 Para: 2 Allergies No Known Drug Allergies Allergy (Verified 08/18/23 10:41) Mother's Medical History: Medical History (Updated 07/04/23 @ 00:02 by Background Daemon) Preeclampsia ?O14.90 - Unspecified pre-eclampsia, unspecified trimester (ICD-10) Anemia ?D64.9 - Anemia, unspecified (ICD-10) Work Plans: returns to work in 2 weeks Delivery Information Delivery type: Repeat Section Weeks Gestation: 38.1 Gestational Age: AGA Weight: 3.09 kg Discharge Weight: 2.834 kg Baby's Information Baby's Age at Visit: 2 months Baby's Provider or Clinic: Dr. Loja Reason for Consult Reason for Consult: trouble maintaining a good latch, increased spit-up Past Experience Past Experience: Yes (nursed her older child x 15 months) Current Frequency of Day Feedings: about every 1.5 - 2.5 hours around the clock Both Breasts: Yes Suck: not aggressive Latch: somewhat narrow Length of Time: about 10 min/side Pumping Pumping: Yes (uses a Haakaa or garbage collector supervisor) Quantity Pumped: 1 - 2 oz each time Supplementing EMB Supplement: No Formula Supplement: No Baby Elimination Number of Wet Diapers a Day: at least every other feeding Number of BM a Day: 3 - 4 in 24 hours Breast/Nipple Condition Breast Information: WNL Maternal Nipple Condition - Left: Common Nipple Maternal Nipple Condition - Right: Common Nipple Sore Nipples: No Onsite Pre-Feed weight: 4.866 kg Post-Feed weight: 4.944 kg Milk Transferred (mL): 78 Assessments/Interventions Assessments/Interventions: Met with mom and this now 2 month old ex- term AGA baby for consult. Mom reports baby is still nursing every 1.5 - 2.5 hours around the clock and has been increasingly more spitty, now to the point of throwing up what looks like a fairly large amount of breastmilk. States it's worse overnight. Baby has also started clicking with nursing and will get fussy and unlatch, then get fussy and relatch. Mom hasn't introduced a bottle, but is returning to work in two weeks so was planning on introducing it this weekend. She's not pumping, but will collect milk from the side baby isn't nursing on with a garbage collector supervisor or the Haakaa. Baby was seen for her two week WCC on 08/30 and PCP suggested she try thickening the bottles with a little rice cereal or oatmeal to help with the spit up. Weight gain was WNL. Breasts WNL- symmetrical with rounded lower quadrants, intramammary distance < 1.5 inches. Nipples are everted and don't flatten or retract on compression, no damage noted, mom reports is comfortable. Baby gained 17 grams/day since her visit on 08/30 and is tracking along the 22nd/23rd percentile. Mom reports she has equal ROM when turning her head and moving her extremities. Her palate, upper frenulum, and lower frenulum all appear to be WNL. She didn't want to suck on a finger but her tongue comes over the gumline and has good lateralization. Mom offered the right side and initially baby was latched deeply and suckling without issue but after a few minutes she came off and mom was spraying milk. Mom hand expressed a little milk off to see if this would help baby stay on, but when mom re-latched her she only maintained the latch for a few minutes before milk was seen spilling out the corners of her mouth. Baby nursed coming off and on for about 10 minute total before mom switched sides. While she was burping baby, she vomited a fair amount of breast milk. Mom offered the left side with the same result. No improvement when baby nursed in a more upright position and only minimal improvement when mom nursed her in the side lying position. After about a 45 minute session, baby transferred 78 ml. No clicking noted at this feeding. Reviewed that baby really doesn't seem to be showing signs of reflux- she doesn't get upset when she spits up/vomits, is comfortable lying on her back, her coming off/on the breast while nursing seem more r/t flow than pain. Reviewed that even with the larger amounts of spit up/vomit, she is gaining noemi ght appropriately (per mom she didn't gain any weight at [facility] in [place] between 08/26 and 09/02). Baby overall seems to be getting what she needs, but with frequent feeds. Plan: 1. Suggested mom continue nursing baby ALD, offering both sides each time. She could take a little milk off if she thinks a fast flow is contributing to the popping off and on and try breast compressions if she feels like baby is getting bored with the flow. 2. Until she returns to work, ok to use the Haakaa and garbage collector supervisor as her pump. She has both a hands free and a plug in for when she does return to work and knows to pump for as many feedings as she's missing. 3. Suggested that b/c baby needs to learn how to take a bottle anyway, she offer EBM with a thickener. It may allow mom to get a longer stretch of sleep at night and also give her a break during baby's witching hour in the late afternoon. 4. Mom is going to [facility] for two more weeks. Will f/u with her by phone on 09/20 to see how her weight has been. A 3 month pre and post feeding weight was scheduled for 09/25/23. Meds Home Medications and Allergies Home Medications Medication Instructions Recorded Confirmed Type prenat.vits,davida,smu-nbhv-pfojo 1 tab PO QDAY 06/26/22 08/18/23 History levonorgestrel 21 mcg/24 hours (8 1 device intrauterine ONCE 08/18/23 08/18/23 History yrs) 52 mg intrauterine device (Mirena) Allergies Allergy/AdvReac Type Severity Reaction Status Date / Time No Known Drug Allergies Allergy Verified 08/18/23 10:41
== END 2023-09-04 09:24 | disposition home or self-care (01) ==
LOC: OB LAC 09:23
PROVIDERS: PCP Obstetrics & Gynecology; Visit Provider Obstetrics & Gynecology
DX: Z39.1 Encounter for care and examination of lactating mother (principal)
CPT/HCPCS: G0463

== ENCOUNTER 2024-10-20 13:51 | Outpatient (CLI) | payer OTHER, SELFPAY | END 2024-10-20 13:52 | disposition home or self-care (01) | PROVIDERS: Visit Provider Physician Assistant Medical | DX: Z00.01 Encounter for general adult medical examination with abnormal findings (principal); Z83.79 Family history of other diseases of the digestive system; Z79.899 Other long term (current) drug therapy; Z13.6 Encounter for screening for cardiovascular disorders; Z13.29 Encounter for screening for other suspected endocrine disorder; Z13.810 Encounter for screening for upper gastrointestinal disorder | CPT/HCPCS: 80061; 82306; 82784; 84443; 86231; 86258; 86364 ==

== ENCOUNTER 2024-11-02 07:09 | Outpatient (CLI) | payer OTHER, SELFPAY ==
--- NOTE | 2024-11-02 07:15 | CRLHL7_ITS ---
For Patients: As a result of the Century Cures Act, medical imaging exams and procedure reports are released immediately into your electronic medical record. You may view this report before your referring provider. If you have questions, please contact your health care provider. INDICATION: Headaches. TECHNIQUE: Brain MRI without contrast. COMPARISON: None. FINDINGS: No evidence of acute ischemia. No evidence of acute or chronic intracranial blood products. Addison focus of FLAIR hyperintensity within the left periatrial white matter. No intracranial abnormality elsewhere. No mass effect or herniation. No hydrocephalus or extra-axial collections. The pituitary gland, parasellar structures and optic chiasm are normal. Posterior fossa is normal. All the major intracranial vascular structures demonstrate normal flow-related signal. The orbital contents are normal. No calvarial or skull base marrow replacing process. No obstructive sinus disease. No extracranial soft tissue findings. IMPRESSION: 1. No acute infarction or other acute intracranial pathology. 2. Addison focus of FLAIR hyperintensity in left periatrial white matter. Nonspecific and could reflect a site of demyelination/inflammation or small-vessel ischemic change. No intracranial signal abnormality elsewhere. Dictated by Cricket Mcclure MD @ 11/02/2024 3:21:10 PM (Electronically Signed)
== END 2024-11-02 07:10 | disposition home or self-care (01) ==
LOC: MRI 07:10
PROVIDERS: PCP Physician Assistant Medical; Visit Provider Physician Assistant Medical
DX: R51.9 Headache, unspecified (principal)
CPT/HCPCS: 70551

== ENCOUNTER 2025-01-30 07:06 | Outpatient (CLI) | payer OTHER, SELFPAY ==
--- NOTE | 2025-01-30 07:15 | CRLHL7_ITS ---
For Patients: As a result of the Century Cures Act, medical imaging exams and procedure reports are released immediately into your electronic medical record. You may view this report before your referring provider. If you have questions, please contact your health care provider. INDICATION: Dyspareunia TECHNIQUE: Ultrasound pelvis transabdominal and transvaginal for better assessment or to better visualize the endometrium. Real-time sonographic images with spectral/color Doppler imaging of the ovaries was obtained for evaluation of ovarian arterial blood flow. COMPARISON: Pelvic ultrasound 06/30/2022 FINDINGS: Uterus: 8 x 3 x 5 cm. Normal echotexture of the myometrium. No masses. Endometrium: 4 mm in thickness. Interval placement of an IUD in satisfactory position. Right ovary: No ovarian or adnexal masses. Normal arterial and venous blood flow. Left ovary: No ovarian or adnexal masses. Normal arterial and venous blood flow. Cul-de-sac: No significant free fluid. IMPRESSION: 1. Interval IUD placement satisfactory positioning. 2. Unremarkable pelvic ultrasound. Dictated by Carlitos Santos MD @ 01/31/2025 9:51:54 AM (Electronically Signed)
== END 2025-01-30 07:07 | disposition home or self-care (01) ==
PROVIDERS: PCP Physician Assistant Medical; Visit Provider Obstetrics & Gynecology
DX: N94.10 Unspecified dyspareunia (principal)
CPT/HCPCS: 76830; 76856; 93976